=== PATIENT | male | born 1940 | race Caucasian/White ===

== ENCOUNTER → 2018-09-18 | Outpatient (CLI) | payer MEDICARE, BC | END | disposition home or self-care (01) | LOC: PLD 08:27 → LAB SHORT 08:27 | DX: D48.5 Neoplasm of uncertain behavior of skin (principal) | CPT/HCPCS: 88305 ==

== ENCOUNTER 2019-03-20 09:19 | Inpatient (IN) | payer MEDICARE, BC ==
[~2019-03-20] VITALS: Ht 172.7 cm; Wt 72.6 kg
[2019-03-20 09:56] LABS: BASOPHILS ABSOLUTE AUTO 0.03 K/mm3 (0.00-0.23); BASOPHILS PERCENT AUTO 0 % (0-2); EOSINOPHILS PERCENT AUTO 1 % (0-6); Hematocrit 43.7 % (37.0-53.0); Hemoglobin 14.7 g/dL (13.5-17.5); IMMATURE GRAN ABSOLUTE AUTO 0.04 K/mm3 (0.00-0.10); IMMATURE GRAN PERCENT AUTO 0 % (0-1); LYMPHOCYTES ABSOLUTE AUTO 0.99 K/mm3 (0.84-5.20); LYMPHOCYTES PERCENT AUTO 11 % (21-46); MONOCYTES ABSOLUTE AUTO 0.74 K/mm3 (0.16-1.47); MONOCYTES PERCENT AUTO 8 % (4-13); Mean Corpuscular HGB 31.5 pg (26.0-34.0); Mean Corpuscular HGB Conc 33.6 g/dL (31.5-36.5); Mean Corpuscular Volume 94 fL (80-100); Mean Platelet Volume 10.4 fL (9.1-12.4); NEUTROPHILS ABSOLUTE AUTO 7.23 K/mm3 (1.96-9.15); NEUTROPHILS PERCENT AUTO 79 % (41-73); Platelet Count 221 K/mm3 (150-400); RDW Coefficient Variation 13.7 % (11.7-14.2); Red Blood Cell Count 4.67 M/mm3 (4.30-5.90); White Blood Cell Count 9.13 K/mm3 (4.00-11.30)
[2019-03-20] MEDS ORDERED: Norco 10-325 T1 EACH PO ×2 (10:11→12:07)
[2019-03-20] MEDS ORDERED: IBUP800 PO (10:11)
[2019-03-20] MEDS ORDERED: VALA500 PO (10:12)
[2019-03-20 10:13] LABS: Alanine Aminotransfer (ALT/SGP 34 U/L (12-78); Albumin, Blood 3.4 g/dL (3.4-5.0); Alk Phos 68 U/L (50-136); Anion Gap 6 mmol/L (6-16); Aspartate Aminotrans (AST/SGOT 16 U/L (12-37); Bilirubin, Total 0.9 mg/dL (0.1-1.0); Blood Urea Nitrogen 10 mg/dL (8-24); Bun/Creatinine Ratio 13.6 (12.0-20.0); CO2, Blood 27 mmol/L (21-32); Calcium, Blood 8.8 mg/dL (8.5-10.1); Chloride, Blood 106 mmol/L (98-108); Creatinine, Blood 0.73 mg/dL (0.60-1.20); Globulin, Blood 3.3 g/dL (2.2-4.0); Glomerular Filtration Rate >60 (60-); Glucose, Blood 104 mg/dL (70-99); Potassium, Blood 4.3 mmol/L (3.5-5.5); Sodium, Blood 139 mmol/L (136-145); Total Protein, Blood 6.7 g/dL (6.4-8.2); Troponin I 0.043 ng/mL (0.000-0.040)
[2019-03-20] MEDS ORDERED: DOCU100 PO (12:08)
[2019-03-20 12:48] LABS: Creatine Kinase MB 5.4 ng/mL (0.0-3.6); Creatine Kinase MB Index 3.1 (0.0-4.0)
--- NOTE | 2019-03-20 13:00 | NUR ---
Recieved report from Laurie PIERRE from ER. patient arrived via gurney on mopnitor. He stansfered with one assist. He continues to c/o 04/30 as he states chest pain with some siatic pain as well. Dr Lr by to see patient, new orders. Hooked up to monitor and assessment done. Soumya has FS in LAC, dressing intact and site WNL and flushes slow. He continues to have small amout of ST elevation. He is on RA and able to communicate his needs.
--- NOTE | 2019-03-20 14:24 | NUR ---
Patient medicated with 2mg Morphine and stated helped for short period, also applied nitro paste as ordered. Patricia PIERRE starting PowerGlide. Friend in room with patient and awaiting spouse. Nuc med in room injecting and will get yogurt for him to eat and they will be back at 1600.
--- NOTE | 2019-03-20 15:18 | NUR ---
Patient finished yogurt and is at bedside. Chest pain reduced to 5/10. PowerGlide in LFA.
--- NOTE | 2019-03-20 17:45 | NUR ---
Patient returned from [facility] , had to bed medicated prior to study as he was very uncomfortable, tomorrow needs med for anxiety as well. He returned and wanted to sit up on bed side which he did for about an hour. He is independent in room with minimal assist with lines. VSS. Chest pain still remains around 5/10.
[2019-03-20 20:21] LABS: Creatine Kinase MB 2.1 ng/mL (0.0-3.6); Creatine Kinase MB Index 1.8 (0.0-4.0)
--- NOTE | 2019-03-20 21:30 | NUR ---
ASSUMED PT CARE AT [address] UPON START OF SHIFT. MEDICATED WITH 4MG OF MORPHINE AND 1MG OF ATIVAN PER ORDERS TO ASSIST WITH PAIN PER REPORT PT DOESN'T TOLERATE LYING FLAT AT ALL. PT WAS ABLE TO TOLERATE CT WELL WITH PAIN AND ANXIETY WELL MANAGED. PT C/O OF BOTH SCIATIC NERVE/LEFT HIP PAIN MORE THAN CHEST PAIN. PT ASSISTED WITH REPOSITIONING TO STAY OFF OF LEFT HIP. PT IS ALERT AND ORIENTED AND ABLE TO MAKE HIS NEEDS KNOWN. IS AT BEDSIDE ASSISTING APPROPRIATELY WITH CARE. SINUS ARRHYTHMIA TO NSR WITH SLIGHT ST ELEVATION NOTED; HR 80-90'S. PT NOTED TO BE SOB EASILY. ABLE TO TALK IN COMPLETE AND FULL SENTENCES; HOWEVER, SOB NOTED AFTER A COUPLE SENTENCES; BIOX REMAINS GREATER THAN 90%. LUNG SOUNDS ARE CLEAR TO BILATERAL UPPER BASES AND DIMINISHED TO BILATERAL LOWER BASES. ABDOMEN IS MODERATELY DISTENDED WITH HYPOACTIVE BOWEL TONES. PT STATES HIS LAST BM WAS MONDAY. STATES HE WAS TAKING STOOL SOFTENERS AT HOME POST LUMBAR SURGERY. PT IS A STANDBY ASSIST FOR AMBULATION D/T WEAKNESS AND OCCASIONAL SHAKINESS OF LEGS. PT STATES HE HAS SCIATIC NERVE PAIN; STATES HIS LEG FEELS LIKE IT IS ON "FIRE". PT TENDS TO BE UNSTEADY AT TIMES AND NEEDS ASSIST WITH CORD MANAGEMENT. CALL LIGHT LEFT WITHIN REACH; PT ABLE TO MAKE NEEDS KNOWN.
[2019-03-21 03:54] LABS: BASOPHILS ABSOLUTE AUTO 0.03 K/mm3 (0.00-0.23); BASOPHILS PERCENT AUTO 0 % (0-2); EOSINOPHILS ABSOLUTE AUTO 0.09 K/mm3 (0.00-0.68); EOSINOPHILS PERCENT AUTO 1 % (0-6); Hematocrit 39.9 % (37.0-53.0); Hemoglobin 13.2 g/dL (13.5-17.5); IMMATURE GRAN ABSOLUTE AUTO 0.02 K/mm3 (0.00-0.10); IMMATURE GRAN PERCENT AUTO 0 % (0-1); LYMPHOCYTES ABSOLUTE AUTO 1.37 K/mm3 (0.84-5.20); LYMPHOCYTES PERCENT AUTO 15 % (21-46); MONOCYTES ABSOLUTE AUTO 1.23 K/mm3 (0.16-1.47); MONOCYTES PERCENT AUTO 13 % (4-13); Mean Corpuscular HGB 31.3 pg (26.0-34.0); Mean Corpuscular HGB Conc 33.1 g/dL (31.5-36.5); Mean Corpuscular Volume 95 fL (80-100); Mean Platelet Volume 10.6 fL (9.1-12.4); NEUTROPHILS PERCENT AUTO 70 % (41-73); Platelet Count 202 K/mm3 (150-400); RDW Coefficient Variation 13.8 % (11.7-14.2); RDW Standard Deviation 47.8 fL (35.1-46.3); Red Blood Cell Count 4.22 M/mm3 (4.30-5.90); White Blood Cell Count 9.24 K/mm3 (4.00-11.30)
[2019-03-21 04:18] LABS: Alanine Aminotransfer (ALT/SGP 25 U/L (12-78); Albumin, Blood 2.9 g/dL (3.4-5.0); Alk Phos 58 U/L (50-136); Anion Gap 5 mmol/L (6-16); Aspartate Aminotrans (AST/SGOT 12 U/L (12-37); Bilirubin, Total 1.4 mg/dL (0.1-1.0); Blood Urea Nitrogen 12 mg/dL (8-24); Bun/Creatinine Ratio 15.6 (12.0-20.0); CO2, Blood 27 mmol/L (21-32); CPK Creatine Kinase 116 U/L (39-308); Calcium, Blood 8.1 mg/dL (8.5-10.1); Chloride, Blood 107 mmol/L (98-108); Creatinine, Blood 0.77 mg/dL (0.60-1.20); Glomerular Filtration Rate >60 (60-); Glucose, Blood 107 mg/dL (70-99); Potassium, Blood 4.3 mmol/L (3.5-5.5); Sodium, Blood 139 mmol/L (136-145); Total Protein, Blood 5.9 g/dL (6.4-8.2)
[2019-03-21 04:19] LABS: Creatine Kinase MB 2.5 ng/mL (0.0-3.6); Creatine Kinase MB Index 2.2 (0.0-4.0)
--- NOTE | 2019-03-21 05:54 | NUR ---
END OF SHIFT SUMMARY PT CONTINUES TO DENY ANY UNBEARABLE CHEST PAIN. MAINLY C/O LEFT LEG/HIP PAIN R/T SCIATIC NERVE PAIN PER PT. HIGHEST PAIN LEVEL HAS BEEN 9/10; LOWEST 3/10. MEDICATED WITH PRN MORPHINE, WHICH APPEARS TO BE EFFECTIVE. PT WAS ASSISTED TO RECLINER USP T/O NIGHT HE BECAME UNCOMFORATBLE IN BED; PT REMAINED IN RECLINER FOR THE REST OF THE NIGHT. PT REMAINS A STANDBY ASSIST FOR SAFETY D/T LEG PAIN, WEAKNESS, AND UNSTEADINESS. PT IS ABLE TO MAKE NEEDS KNOWN. VERY PLEASANT AND COOPERATIVE WITH CARE. NO RHYTHM CHANGES NOTED THIS SHIFT. WILL CONTINUE TO MONITOR UNTIL REPORT IS HANDED OFF TO ONCOMING RN.
--- NOTE | 2019-03-21 07:50 | NUR ---
DR. HERNANDEZ IN TO SEE PATIENT THIS AM. UPDATED ON PATIENT STATUS. INFORMED THAT PATIENT BECAME CONFUSED AFTER ATIVAN PER SILK SCREEN REPAIRER NURSE. INFORMED THAT NO BM SINCE MONDAY. INFORMED THAT NITRO ON EMAR BUT PATIENT SCHEDULED FOR LEXISCAN TODAY. PLACED ORDERS.
--- NOTE | 2019-03-21 08:00 | NUR ---
INITIAL ASSESSMENT PATIENT SITTING IN CHAIR, VISITING WITH AND WATCHING TV UPON ENTERING ROOM. PATIENT ALERT AND ORIENTED X 4, AFEBRILE. PATIENT DENIES PAIN, CHEST PAIN/ PRESSURE. PATIENT WEAK BUT ABLE TO MOVE ALL EXTREMITIES AND AMBULATE WITH SBA. PATIENT SATTING 90% AND GREATER ON RA. LUNGS CLEAR IN UPPER LOBES AND DIMINISHED IN LOWER LOBES. PATIENT SOB WITH EXERTION. PATIENT IN SR WITH ST ELEVATION. HR 60S TO 70S. BP STABLE. SCDS IN PLACE. ABDOMEN MODERATELY DISTENDED, SOFT, WITH HYPOACTIVE BS. REPORTS LAST BM ON MONDAY. PATIENT STATES HE HAD BEEN TAKING STOOL SOFTENERS AT HOME AFTER BACK SURGERY WAS TAKING NARCOTICS FOR PAIN. PATIENT VOIDING DARK QUYNH COLORED URINE INTO BEDSIDE URINAL. PATIENT HAS LUMBAR INCISION- STERI STRIPS IN PLACE. APPEARS WNL. IVS FLUSHED AND SALINE LOCKED. CALL LIGHT IN REACH. WILL CONTINUE TO MONITOR PATIENT FREQUENTLY THROUGHOUT SHIFT.
--- NOTE | 2019-03-21 12:32 | NUR ---
PATIENT SITTING IN CHAIR VISITING WITH AND FRIENDS UPON ENTERING ROOM. VITAL SIGNS STABLE. PATIENT NPO FOR SCHEDULED TEST AROUND 2PM. NO COMPLAINTS AT THIS TIME. NO ACUTE CHANGES TO NOTE ON. WILL CONTINUE TO MONITOR.
--- NOTE | 2019-03-21 16:45 | NUR ---
PATIENT HAS TEMP OF 99.0 DEGREES FAHRENHEIT. VITAL SIGNS STABLE. NO COMPLAINTS. NO OTHER ACUTE CHANGES TO NOTE ON AT THIS TIME. AT BEDSIDE. WILL CONTINUE TO MONITOR.
--- NOTE | 2019-03-21 16:50 | NUR ---
no advance directive [place] file at [place]
--- NOTE | 2019-03-21 17:58 | NUR ---
SHIFT SUMMARY PATIENT REMAINED ALERT AND ORIENTED X 4. PATIENT HAD TMAX OF 99.0 DEGREES FAHRENHEIT. PATIENT REMAINED SBA. PATIENT HAD NO COMPLAINTS OF PAIN THIS SHIFT. PATIENT REMAINED SATTING 90% AND GREATER ON RA. PATIENT REMAINED IN SR WITH ST ELEVATED. HR 60S TO 80S. BP REMAINED STABLE. PATIENT DID NOT HAVE BM THIS SHIFT, THAT HE REPORTED. PATIENT HAD GOOD APPETITE. PATIENT VOIDING WELL. URINE DARK QUYNH IN COLOR. NO CHANGE TO SKIN. IVS REMAIN SALINE LOCKED. PATIENT HAD STRESS TEST THIS AFTERNOON. PATIENT HAS NO COMPLAINTS AT THIS TIME. BED LOW, CALL LIGHT IN REACH. WILL CONTINUE TO MONITOR PATIENT FREQUENTLY UNTIL REPORT GIVEN TO ONCOMING MOTOR BLOCK MECHANIC NURSE.
--- NOTE | 2019-03-21 19:30 | NUR ---
ASSUMED CARE BEDSIDE REPORT RECIEVED. PT IS SITTING UP IN BEDSIDE CHAIR, ALERT, AND ORIENTED. PT DENIES CHEST PAIN, SOB, OR NAUSEA. PT DENIES PAIN TO BACK AND LEGS WELL. PT WITH HX OF RECENT LUMBAR SURGERY. SITE IS C/D/I, OPEN TO AIR. VITAL SIGNS STABLE. PT ON ROOM AIR. PT SPOUSE AT BEDSIDE. POWER GLIDE TO DIMA C/D/I, SALINE LOCKED. WILL CONTINUE TO MONITOR.
--- NOTE | 2019-03-22 06:34 | NUR ---
SHIFT SUMMARY NO ACUTE CHANGES THIS SHIFT. PT SLEPT OFF AND ON THROUGHOUT THE SHIFT. WHEN AWAKE, PT IS ALERT, ORIENTED, AND PLEASANT. PT HAS DENIED PAIN THROUGHOUT THE SHIFT. VITAL SIGNS HAVE REMAINED STABLE. PT SPOUSE SPENT THE NIGHT AT THE BEDSIDE. PT UP IN ROOM INDEPENDENTLY. POWER GLIDE TO DIMA REMAINS C/D/I. WILL CONTINUE TO MONITOR AND REPORT OFF TO ONCOMING RN.
[2019-03-22] MEDS ORDERED: ATOR40TA PO (09:11)
[2019-03-22] MEDS ORDERED: METO25ER PO (09:12)
--- NOTE | 2019-03-22 14:09 | NUR ---
BEGINNING OF SHIFT/DISCHARGE Assumed care of pt 0700. Bedside report received from Kristopher PIERRE. Pt independent in room. Pt on room air. States desire to go home. Dr Murray in to see pt [id number]. States plan to discharge pt as stress test results are available. This RN placed call to Dr Lr to update. Provider stated she is okay with pt discharging home. Medications faxed to [place]. During AM med pass, this RN offered pt AM medications, in case he has difficulty obtaining new medications [facility]. Pt states "I want to talk to my primary care doctor before I start new medication." Pt states he has appointment with PCP next week. Pt refuses AM medications offered by this RN, except for aspirin. Discharge education provided. This RN educates pt that he should take new prescribed medications since it will be several days before he sees his PCP. Pt does not offer response after this education provided. Pt departed from unit at 0930, accompanied by spouse. Escorted to hospital entrance via wheelchair, accompanied by Bess PIERRE.
== END 2019-03-22 09:35 | disposition home or self-care (01) | DRG 313 ==
LOC: ER 09:19 → PCU 11:10 → ICUW 11:10
PROVIDERS: Internal Medicine Interventional Cardiology; Nurse Practitioner Acute Care; Physician Assistant; ADMIT Hospitalist
DX: R07.9 Chest pain, unspecified (principal); Z87.891 Personal history of nicotine dependence; Z85.46 Personal history of malignant neoplasm of prostate; Z90.79 Acquired absence of other genital organ(s); Z98.1 Arthrodesis status; Z79.82 Long term (current) use of aspirin
CPT/HCPCS: 71046; 71260; 78452; 80053; 82550; 82553; 84484; 85025; 93005; 93010; 93017; 93306; 96374-59; 99285-25; A9500; C1751; J0706; J1644; J2060; J2250; J2270; J2785; J3010; J7030; Q9967

== ENCOUNTER 2020-02-12 09:16 | Day surgery (SDC) | payer MEDICARE, BC ==
[~2020-02-12] VITALS: Ht 172.7 cm; Wt 71.4 kg
[~2020-02-12 09:16] MED LIST: ATOR40TA PO; DOCU100 PO; IBUP800 PO; METO25ER PO; Norco 10-325 T1 EACH PO; VALA500 PO
== END 2020-02-12 11:25 | disposition home or self-care (01) ==
LOC: ORSCSDS 09:16
PROVIDERS: Internal Medicine Gastroenterology
PROC: 0DJD8ZZ Inspection of Lower Intestinal Tract, Via Natural or Artificial Opening Endoscopic (ICD-10-PCS; principal; 2020-02-12 10:30)
DX: Z12.11 Encounter for screening for malignant neoplasm of colon (principal); Z86.010 Personal history of colon polyps; K57.30 Diverticulosis of large intestine without perforation or abscess without bleeding; Z80.0 Family history of malignant neoplasm of digestive organs; Z87.891 Personal history of nicotine dependence; Z85.46 Personal history of malignant neoplasm of prostate
CPT/HCPCS: J2704; J7120

== ENCOUNTER 2020-11-11 07:43 | Observation (INO) | payer OTHER, MEDICARE, BC ==
[~2020-11-11] VITALS: Ht 172.7 cm; Wt 72.0 kg
[2020-11-11 08:40] LABS: BASOPHILS ABSOLUTE AUTO 0.03 K/mm3 (0.00-0.23); BASOPHILS PERCENT AUTO 0 % (0-2); EOSINOPHILS ABSOLUTE AUTO 0.08 K/mm3 (0.00-0.68); EOSINOPHILS PERCENT AUTO 1 % (0-6); Hematocrit 46.9 % (37.0-53.0); Hemoglobin 15.6 g/dL (13.5-17.5); IMMATURE GRAN ABSOLUTE AUTO 0.02 K/mm3 (0.00-0.10); IMMATURE GRAN PERCENT AUTO 0 % (0-1); LYMPHOCYTES ABSOLUTE AUTO 0.98 K/mm3 (0.84-5.20); LYMPHOCYTES PERCENT AUTO 12 % (21-46); MONOCYTES ABSOLUTE AUTO 0.69 K/mm3 (0.16-1.47); MONOCYTES PERCENT AUTO 8 % (4-13); Mean Corpuscular HGB 31.1 pg (26.0-34.0); Mean Corpuscular HGB Conc 33.3 g/dL (31.5-36.5); Mean Corpuscular Volume 94 fL (80-100); Mean Platelet Volume 10.6 fL (9.1-12.4); NEUTROPHILS ABSOLUTE AUTO 6.64 K/mm3 (1.96-9.15); NEUTROPHILS PERCENT AUTO 79 % (41-73); Platelet Count 193 K/mm3 (150-400); RDW Coefficient Variation 13.9 % (11.7-14.2); RDW Standard Deviation 47.3 fL (35.1-46.3); Red Blood Cell Count 5.01 M/mm3 (4.30-5.90); White Blood Cell Count 8.44 K/mm3 (4.00-11.30)
[2020-11-11 08:50] LABS: Alanine Aminotransfer (ALT/SGP 22 U/L (12-78); Albumin, Blood 3.5 g/dL (3.4-5.0); Albumin/Globulin Ratio 1.1 (0.8-1.8); Alk Phos 71 U/L (50-136); Anion Gap 5 mmol/L (6-16); Aspartate Aminotrans (AST/SGOT 17 U/L (12-37); Bilirubin, Total 1.3 mg/dL (0.1-1.0); Blood Urea Nitrogen 11 mg/dL (8-24); Bun/Creatinine Ratio 14.4 (12.0-20.0); CO2, Blood 29 mmol/L (21-32); Calcium, Blood 8.6 mg/dL (8.5-10.1); Chloride, Blood 106 mmol/L (98-108); Creatinine, Blood 0.76 mg/dL (0.60-1.20); Globulin, Blood 3.1 g/dL (2.2-4.0); Glomerular Filtration Rate >60 (60-); Glucose, Blood 118 mg/dL (70-99); Potassium, Blood 3.8 mmol/L (3.5-5.5); Sodium, Blood 140 mmol/L (136-145); Total Protein, Blood 6.6 g/dL (6.4-8.2); Troponin I 0.042 ng/mL (0.000-0.040)
[2020-11-11 10:55] LABS: CHOL/HDL RATIO 3.7; Cholesterol 166 mg/dL (50-200); HDL Cholesterol 45 mg/dL (>39); LDL/HDL RATIO 2.3; Low Density Lipoprotein Chol 103 mg/dL (0-110); Triglycerides 92 mg/dL (30-160); Very Low Density Lipoprot Chol 18 mg/dL (6-32)
--- NOTE | 2020-11-11 14:51 | NUR ---
PT IS A 80YO MALE WHO CAME IN FOR CHEST PAIN; NO CHEST PAIN SINCE 11AM; DENIES SOB OR ANY DISCOMFORT. PT IS INDEPENDENT IN THE ROOM AND AT BEDSIDE. PT HAD A FIRST PART OF STRESS TEST THIS AM; AND WILL HAVE THE SECOND ONE TOMORROW MORNING; NPO AFTER BREAKFAST AND NO CAFFEINE STARTING TONIGHT. PT AOX4; CALLS APPROPRIATELY. PT DOES NOT TAKE ANY MEDICATIONS; NO PMH BESIDES BACK SURGERY. PT ORIENTED IN THE ROOM AND CALL LIGHT WITHIN REACG
--- NOTE | 2020-11-11 17:41 | NUR ---
SHIFT SUMMARY PT ALERT ORIENTED; DENIES ANY CP AND WILL HAVE A SECOND STRESS TEST TOMORROW. PT DENIES ANY DISCOMFORT AT THIS TIME. ON TELE NSR @70S. NO O2. AT BEDSIDE. BED IS IN THE LOWEST POSITION AND CALL LIGHT WITHIN REACH
--- NOTE | 2020-11-11 22:49 | NUR ---
ASSUMED CARE. AOX3, IS AT BEDSIDE. THEY ARE VERY CONCERNED THAT HIS BLOOD PRESSURE WENT FROM 113 TO 127 SYSTOLIC. DISCUSSED AND EXPLAINED NORMAL BLOOD PRESSURE AND HOW IT CAN CHANGE. THEY DID REFUSE BLOOD PRESSURE MEDS EARLIER HE DOES NOT FEEL HE NEEDS THEM. CHEST PAIN IS MID-STERNUM VERY DULL, LIKE "SORENESS" HE DISCRIBES IT. DOES NOT RADIATE. DOES GET WORSE WITH EXERTION AT TIMES. HE IS VERY ANXIOUS ABOUT IT AND HAS CALLED SEVERAL TIMES WHEN IT FEELS SLIGHTLY DIFFERENT. VITALS ARE GOOD. TELE RUNNING SINUS WITH NO EVENTS. DID TALK TO DR. JASMINE TO SEE ABOUT ANXIETY MEDICATION TO HELP HIM SLEEP WELL. GOT ATIVAN ORDERED. WILL ADMINISTER. DENIES ANY OTHER ISSUES. CALL LIGHT IS IN REACH.
--- NOTE | 2020-11-12 05:15 | NUR ---
SHIFT SUMMARY: AOX3, INDEPENDENT. SINUS ON TELE WITH NO EVENTS THIS SHIFT. DID REPORT DISCOMFORT X2 FEELING LIKE SORENESS MID STERNUM THAT DID NOT RADIATE OR CHANGE WITH POSITION. LABS WNL, VSS. PAIN IS VERY MINIMAL WHEN IT OCCURS AND DOES NOT LAST LONG. NO SOB OR DIZZINESS. DID NOT THAT HE IS VERY ANXIOUS AND TENDS TO CALL IF HE EVEN FEELS A SLIGHT DIFFERENCE IN HIS CHEST. HE WAS EVEN WORRIED THAT SOMETHING MIGHT BE WRONG BECAUSE HIS SBP WENT FROM 113 TO THE 120'S. EDUCATE WAS PROVIDED TO HIM AND HIS . NO OTHER CHANGES TO NOTE. CALL LIGHT IS IN REACH.
--- NOTE | 2020-11-12 16:30 | NUR ---
DISCHARGE PT DISCHARGED AFTER 2ND PORTION OF STRESS TEST TODAY. NO ACUTE CHANGES IN ASSESSMENT PRIOR TO DC. PT & EDUCATED TO RETURN TO ER IF CP RETURNS AND TO FOLLOW UP WITH [facility]. PT PREFERED TO CALL HIMSELF. FUTHER QUESTIONS WERE DENIED AT THIS TIME. PT WHEELED OUT BY AIDE AND DRIVEN HOME BY .
== END 2020-11-12 16:41 | disposition home or self-care (01) ==
LOC: ER 07:43 → MEDS 07:44
PROVIDERS: Physician Assistant; ADMIT Internal Medicine
DX: I21.A1 Myocardial infarction type 2 (principal); R73.9 Hyperglycemia, unspecified; Z85.46 Personal history of malignant neoplasm of prostate; Z87.891 Personal history of nicotine dependence
CPT/HCPCS: 36415; 71046; 78452; 80053; 80061; 83690; 83880; 84484; 85025; 93005; 93010; 93017; 96372; 99285-25; A9270; A9500; G0378; J0280; J0706; J1650; J2785

== ENCOUNTER → 2021-01-12 | Outpatient (CLI) | payer OTHER, MEDICARE, BC | END | disposition home or self-care (01) | LOC: LAB 12:31 → LAB SHORT 12:31 | DX: L81.4 Other melanin hyperpigmentation (principal) | CPT/HCPCS: 88305 ==

== ENCOUNTER 2024-02-16 11:41 | Emergency (ER) | payer OTHER, MEDICARE, BC ==
[~2024-02-16] VITALS: Ht 172.7 cm; Wt 70.3 kg
[2024-02-16] MEDS ORDERED: LEVSOD75 PO (12:07)
[2024-02-16 12:29] LABS: BASOPHILS ABSOLUTE AUTO 0.03 K/mm3 (0.00-0.23); BASOPHILS PERCENT AUTO 0 % (0-2); EOSINOPHILS ABSOLUTE AUTO 0.01 K/mm3 (0.00-0.68); EOSINOPHILS PERCENT AUTO 0 % (0-6); Hematocrit 49.2 % (37.0-53.0); Hemoglobin 16.9 g/dL (13.5-17.5); IMMATURE GRAN ABSOLUTE AUTO 0.01 K/mm3 (0.00-0.10); IMMATURE GRAN PERCENT AUTO 0 % (0-1); LYMPHOCYTES ABSOLUTE AUTO 0.91 K/mm3 (0.84-5.20); LYMPHOCYTES PERCENT AUTO 12 % (21-46); MONOCYTES ABSOLUTE AUTO 0.43 K/mm3 (0.16-1.47); MONOCYTES PERCENT AUTO 6 % (4-13); Mean Corpuscular HGB 31.4 pg (26.0-34.0); Mean Corpuscular HGB Conc 34.3 g/dL (31.5-36.5); Mean Corpuscular Volume 91 fL (80-100); Mean Platelet Volume 10.6 fL (9.1-12.4); NEUTROPHILS ABSOLUTE AUTO 6.43 K/mm3 (1.96-9.15); NEUTROPHILS PERCENT AUTO 82 % (41-73); Platelet Count 224 K/mm3 (150-400); RDW Coefficient Variation 13.3 % (11.7-14.2); RDW Standard Deviation 44.1 fL (35.1-46.3); Red Blood Cell Count 5.39 M/mm3 (4.30-5.90); White Blood Cell Count 7.82 K/mm3 (4.00-11.30)
[2024-02-16 12:46] LABS: Albumin, Blood 3.8 g/dL (3.4-5.0); Albumin/Globulin Ratio 1.3 (0.8-1.8); Bilirubin, Total 1.3 mg/dL (0.1-1.0); Bun/Creatinine Ratio 16.5 (12.0-20.0); Calcium, Blood 8.7 mg/dL (8.5-10.1); Creatinine, Blood 0.73 mg/dL (0.60-1.20); Globulin, Blood 2.9 g/dL (2.2-4.0); Potassium, Blood 4.4 mmol/L (3.5-5.5); Total Protein, Blood 6.7 g/dL (6.4-8.2)
[2024-02-16 16:15] VITALS: BP 121/72
== END 2024-02-16 16:49 | disposition home or self-care (01) ==
LOC: ER 11:41
PROVIDERS: Physician Assistant
DX: K59.00 Constipation, unspecified (principal); E03.9 Hypothyroidism, unspecified; Z87.891 Personal history of nicotine dependence; Z79.899 Other long term (current) drug therapy
CPT/HCPCS: 74018; 74177; 80053; 83690; 85025; 99284-25; Q9967